=== PATIENT | female | born 1985 | race Caucasian/White ===

== ENCOUNTER 2017-05-25 20:15 | Emergency (ER) | payer MEDICAID ==
[~2017-05-25] VITALS: Ht 167.6 cm; Wt 104.5 kg
[~2017-05-25 20:15] MED LIST: ALBU17AE27 IH
[2017-05-25] MEDS ORDERED: 0.9% SODIUM CHLORIDE 5 ML NEB SOLUTION NEB ONE (20:43)
[2017-05-25] MEDS ORDERED: ALBUTEROL SULFATE 2.5 MG/0.5 ML NEB SOLUTION NEB ONE (20:45)
[2017-05-25] MEDS ORDERED: PredniSONE 20 MG TABLET PO ONE (20:45)
[2017-05-25] MEDS ORDERED: IPRATROPIUM BROMIDE 0.5 MG/2.5 ML NEB SOLUTION NEB ONE (20:45)
[2017-05-25 21:52] VITALS: BP 144/87
== END 2017-05-25 21:56 | disposition home or self-care (01) ==
LOC: EDUNIT# 20:15 → EMS 20:17 → EDBD 20:17 → EMS 21:56
DX: J45.909 Unspecified asthma, uncomplicated (principal); R07.89 Other chest pain; R05 Cough
CPT/HCPCS: 94640; 99283; J7512; J7613

== ENCOUNTER 2020-04-10 14:53 | Emergency (ER) | payer MEDICAID ==
[~2020-04-10] VITALS: Ht 175.3 cm; Wt 113.6 kg
[2020-04-10] MEDS ORDERED: POVIDONE-IODINE 10% 15 ML SOLUTION UD TP ONE (15:00)
[2020-04-10] MEDS ORDERED: LIDOCAINE 1% 10 ML VIAL SQ ONE (15:00)
[2020-04-10] MEDS ORDERED: ACETAMINOPHEN 325 MG TABLET PO ONE (15:00)
[2020-04-10] MEDS ORDERED: BACITRACIN 0.9 GM PACKET OINTMENT TP ONE (15:00)
[2020-04-10 16:38] VITALS: BP 135/81
== END 2020-04-10 16:38 | disposition home or self-care (01) ==
LOC: EMS 14:58
DX: S01.112A Laceration without foreign body of left eyelid and periocular area, initial encounter (principal); J45.909 Unspecified asthma, uncomplicated; E11.9 Type 2 diabetes mellitus without complications; W22.8XXA Striking against or struck by other objects, initial encounter; Y93.89 Activity, other specified; Y92.89 Other specified places as the place of occurrence of the external cause; Y99.8 Other external cause status
CPT/HCPCS: 12011; 82962; 99283; J3490

== ENCOUNTER 2020-04-18 18:29 | Emergency (ER) | payer MEDICAID ==
[~2020-04-18] VITALS: Ht 167.6 cm; Wt 102.3 kg
[2020-04-18 18:32] VITALS: BP 138/73
== END 2020-04-18 18:45 | disposition home or self-care (01) ==
LOC: EMS 18:29
DX: S01.81XD Laceration without foreign body of other part of head, subsequent encounter (principal); J45.909 Unspecified asthma, uncomplicated; E11.9 Type 2 diabetes mellitus without complications; X58.XXXD Exposure to other specified factors, subsequent encounter
CPT/HCPCS: Z7502

== ENCOUNTER 2021-09-14 23:19 | Emergency (ER) | payer MEDICAID ==
[~2021-09-14] VITALS: Ht 177.8 cm; Wt 100.0 kg
[2021-09-15 02:18] VITALS: BP 118/76
== END 2021-09-15 02:31 | disposition home or self-care (01) ==
LOC: EMS 23:24
DX: M23.304 Other meniscus derangements, unspecified medial meniscus, left knee (principal); J45.909 Unspecified asthma, uncomplicated; E11.9 Type 2 diabetes mellitus without complications; E03.9 Hypothyroidism, unspecified
CPT/HCPCS: 29505; 99283

== ENCOUNTER 2025-02-14 22:35 | Emergency (ER) | payer MEDICAID, OTHER ==
[~2025-02-14] VITALS: Ht 162.6 cm; Wt 100.0 kg
[2025-02-14 22:36] VITALS: TEMP 98.1
[2025-02-14 23:00] LABS: GLUCOMETER DEV NAME(LOC) ERT.7; GLUCOSE,POINT OF CARE 104 MG/DL (70-110)
[2025-02-14 23:09] VITALS: BP 148/87; PULSE 88; RESP 14; O2SAT 100
[2025-02-14] MEDS: KETOROLAC TROMETHAMINE 30 MG/ML VIAL IM ONE (23:23)
== END 2025-02-14 23:30 | disposition home or self-care (01) ==
LOC: EMS 22:35
DX: M19.071 Primary osteoarthritis, right ankle and foot (principal); M17.0 Bilateral primary osteoarthritis of knee; E03.9 Hypothyroidism, unspecified; E11.9 Type 2 diabetes mellitus without complications; J45.909 Unspecified asthma, uncomplicated; Z79.899 Other long term (current) drug therapy; M77.9 Enthesopathy, unspecified; W19.XXXA Unspecified fall, initial encounter; Y93.89 Activity, other specified; Y92.89 Other specified places as the place of occurrence of the external cause; Y99.8 Other external cause status
CPT/HCPCS: 99284; 82962; 73562; 73620; 96372; J1885